=== PATIENT | male | born 1935 | race Two or more races ===

== ENCOUNTER → 2021-05-16 19:02 | Outpatient (CLI) | payer MEDICARE ==
[2021-05-17 16:03] LABS: BACTERIA FEW HPF (<MOD); BILIRUBIN NEGATIVE (NEGATIVE); KETONE NEGATIVE mg/dL (< 1+); NITRITE NEGATIVE (NEGATIVE); SQUAMOUS EPITHELIAL 1 HPF (0-4); UROBILINOGEN NORMAL mg/dL (< 2); WHITE CELLS - URINE 40 HPF (0-1)
== END | disposition home or self-care (01) ==
LOC: D.LABREF 19:02
PROVIDERS: ATTEND Internal Medicine Nephrology
DX: N39.0 Urinary tract infection, site not specified (principal)